=== PATIENT | male | born 1940 | race Caucasian/White ===

== ENCOUNTER → 2016-11-09 | Outpatient (CLI) | payer MEDICARE ==
[~2016-11-09] MED LIST: ASPIRIN EC81 MG PO; CPAP INH; GLUCOPHAGE500 MG PO; GLUCOTROL XL2.5 MG PO; HYTRIN1 MG PO; ISOSORBIDE MONO60 MG PO; LEVOTHROID (SY50 MCG PO; LOPRESSOR25 MG PO; LOPRESSOR50 MG PO; NITROSTAT0.4 MG SL; NORVASC2.5 MG PO; NORVASC5 MG PO; PLAVIX75 MG PO; PRAVACHOL80 MG PO; PRINIVIL OR ZES10 MG PO; PROVENTIL OR V6.7 GM INH; SUPREP BOWEL P354 ML; SYMBICORT 80-10.2 GM INH; TYLENOL WITH C1 EACH PO; VITAMIN B-121000 MCG; VITAMIN D2000 UNI1 PO
== END | disposition disaster alternative care site (69) ==
LOC: GRAD 12:46
DX: M25.511 Pain in right shoulder (principal); M75.121 Complete rotator cuff tear or rupture of right shoulder, not specified as traumatic; M67.813 Other specified disorders of tendon, right shoulder